=== PATIENT | female | born 1945 | race Caucasian/White ===

== ENCOUNTER 2025-04-11 11:09 | Inpatient (IN) | payer MEDICARE ==
[~2025-04-11] VITALS: Ht 162.6 cm; Wt 56.7 kg
[~2025-04-11 11:09] MED LIST: ALENDRONATE SOD70 MG PO; CALCIU; CALCIUM PO; CENTRUM WOMEN1 EACH PO; MAGNESIUM PO; ROPIVACAINE/EPI/CLONIDINE/KET 50 ML SYRINGE INJ ONE
[2025-04-11] MEDS ORDERED: ACETAMINOPHEN 1000 MG/100 ML 100 ML IV ONE (12:41)
[2025-04-11] MEDS ORDERED: PROPOFOL IV EMULSION 10 MG/ML 20 ML VIAL ONE (12:41)
[2025-04-11] MEDS ORDERED: ONDANSETRON HCL INJ 2MG/ML 2ML 2 MG/ML VIAL ONE (12:41)
[2025-04-11] MEDS ORDERED: SEVOFLURANE INHAL SOLN 250 ML PEN BTL ONE (12:41)
[2025-04-11] MEDS ORDERED: FENTANYL CITRATE/PF 100MCG/2 ML INJ ONE (12:41)
[2025-04-11] MEDS ORDERED: LIDOCAINE HCL 2% LOCAL INJ 5 ML SDV VIAL INJ ONE (12:41)
[2025-04-11] MEDS: CELECOXIB 200 MG CAP ONE (12:47)
[2025-04-11] MEDS: LACTATED RINGER'S 1,000 ML ONE (12:49)
[2025-04-11] MEDS: DEXAMETHASONE SOD PHOS 10 MG/1 ML VIAL ONE (12:49)
[2025-04-11] MEDS: SODIUM CHLORIDE 0.9% 250ML 250 ML ONE (12:50)
[2025-04-11] MEDS: GABAPENTIN 300 MG CAP ONE (12:50)
[2025-04-11] MEDS: Vancomycin IV 1 GM VIAL ONE (12:50)
[2025-04-11] MEDS ORDERED: SODIUM CHLORIDE 0.9% 200 ML ONE (13:31)
[2025-04-11] MEDS ORDERED: PHENYLEPHRINE HCL 1% 10 MG/ML VIAL ONE (13:42)
[2025-04-11] MEDS ORDERED: DIPHENHYDRAMINE HCL INJ 50 MG/ML VIAL IV PRN (15:00)
[2025-04-11] MEDS ORDERED: HYDROCODONE/APAP 5MG-325MG TAB PO PRN (15:00)
[2025-04-11] MEDS ORDERED: DOCUSATE SODIUM 100 MG CAP PO PRN (15:00)
[2025-04-11] MEDS ORDERED: ONDANSETRON HCL INJ 2MG/ML 2ML 2 MG/ML VIAL IV PRN (15:00)
[2025-04-11] MEDS ORDERED: HYDROCODONE/APAP 7.5MG-325MG 1 EA TAB PO PRN (15:00)
[2025-04-11] MEDS ORDERED: ACETAMINOPHEN 650 MG SUPP PR PRN (15:00)
[2025-04-11] MEDS: ASPIRIN 325 MG TAB PO SCH (17:44)
[2025-04-11] MEDS: CELECOXIB 100 MG CAP PO SCH (17:44)
[2025-04-11 17:45] VITALS: BP 126/66; PULSE 71; RESP 18; TEMP 97.5; O2SAT 100
[2025-04-11 20:14] VITALS: PULSE 71; RESP 18; O2SAT 100
[2025-04-11] MEDS ORDERED: ZOLPIDEM TARTRATE 5 MG TAB PO PRN (21:00)
[2025-04-11 22:54] VITALS: BP 99/53; PULSE 87; RESP 18; TEMP 97.4
[2025-04-11 22:57] VITALS: BP 99/53; PULSE 87; RESP 18; TEMP 97.4; O2SAT 97
[2025-04-11] MEDS: Vancomycin IV 1 GM in SODIUM CHLORIDE 0.9% 250ML 250 ML IV SCH (23:57)
[2025-04-12] VITALS (7 sets, daily range): BP systolic 83–105; BP diastolic 47–60; PULSE 67–86; RESP 16–19; TEMP 97.3–98.5; O2SAT 72–100
[2025-04-12] MEDS: SODIUM CHLORIDE 0.9% 500ML 500 ML IV ONE (06:18)
[2025-04-12] MEDS ORDERED: ACETAMINOPHEN 1000 MG/100 ML IV PRN (15:00)
== END 2025-04-12 13:00 | disposition home or self-care (01) | DRG 468 ==
LOC: OR 11:09 → MED/SURG 16:14 → MED/SURG3 16:30
PROVIDERS: ADMIT Specialist; ATTEND Specialist
PROC: 0SPA0JZ Removal of Synthetic Substitute from Right Hip Joint, Acetabular Surface, Open Approach (ICD-10-PCS; 2025-04-11)
PROC: 0SR90JZ Replacement of Right Hip Joint with Synthetic Substitute, Open Approach (ICD-10-PCS; principal; 2025-04-11 13:30)
DX: T84.090A Other mechanical complication of internal right hip prosthesis, initial encounter (principal)
CPT/HCPCS: 36415; 71046; 72170; 85014; 85018; 86850; 86900; 94799; C1713; C1776; J1100; J2003; J2371; J2405; J3373; J7040; J7050